=== PATIENT | male | born 2005 | race Hispanic/Latino ===

== ENCOUNTER 2025-05-29 01:58 | Emergency (ER) | payer SELFPAY ==
[2025-05-29] VITALS (9 sets, daily range): BP systolic 113–133; BP diastolic 67–85; PULSE 62–79; RESP 13–20; TEMP 36.5–36.8; O2SAT 98–100
[2025-05-29 02:21] LABS: Hematocrit 44.1 % (42.0-52.0); Hemoglobin 14.9 g/dL (14.0-18.0); Immature Granulocyte Percent A 0.2 % (0-0.5); Lymphocytes Absolute Auto 2.86 K/mm3 (0.9-3.2); Mean Corpuscular HGB Conc 33.8 g/dl (32-36); Mean Corpuscular Hemoglobin 28.0 pg (26-34); Mean Corpuscular Volume 82.7 fl (80-100); Nucleated Red Blood Cells Absolute Auto 0.000 K/mm3 (0.0-0.012); Nucleated Red Blood Cells Perc 0.0 % (0.0-0.2); Platelet Count Result 250 k/mm3 (150-375); Red Blood Count 5.33 M/mm3 (4.6-6.20); White Blood Count 8.8 K/mm3 (4.5-10.0)
[2025-05-29 02:35] LABS: Alanine Aminotransferase 18 U/L (6-50); Albumin Level 4.9 g/dL (3.5-5.1); Alkaline Phosphatase 94 U/L (38-126); Anion Gap 9 mmol/L (4-12); Aspartate Amino Transferase 31 U/L (17-59); Bilirubin,Total 0.4 mg/dL (0.2-1.3); Blood Urea Nitrogen 15 mg/dL (9-20); Calcium 9.6 mg/dL (8.4-10.2); Carbon Dioxide 26 mmol/L (22-30); Chloride 103 mmol/L (98-107); Estimated Glomerular Filt Rate > 60; Glucose 117 mg/dL (65-110); Lipase 47 U/L (23-300); Potassium 4.0 mmol/L (3.4-5.0); Sodium 138 mmol/L (137-145); Total Protein 7.8 g/dL (6.3-8.2)
[2025-05-29 05:13] LABS: Add Urine Microscopic? YES; Appearance Urine Turbid (Clear); Glucose Urine UA Negative (Negative); Leukocyte Esterase Ur Negative LEU/UL (Negative); Nitrate Urine Negative (Negative); Non Pathogenic Casts 0-2; Specific Grav Ur 1.014 (1.001-1.035)
--- NOTE | 2025-05-29 05:41 | ED.ABDPAIN ---
HPI - Abdominal Pain General Chief Complaint: Abdominal Pain Stated Complaint: stomach pain; nausea Time Seen by Provider: 05/29/25 05:31 History of Present Illness HPI narrative: 20-year-old otherwise healthy male with no pertinent past medical history presenting with left upper quadrant burning pain since last night. Previous to this he ate pain did express with his partner and start amoxicillin for recent dental infection. He states he has 10/10 burning left upper quadrant pain associated with some nausea. No traumatic injuries. No recent health concerns otherwise. Has not tried anything for symptom control. Dorsum constipation was able to go the bathroom earlier before being seen in the ED. Denies any urinary complaints. No fever, chills, chest pain, difficulty breathing. Was otherwise in his normal state of health. No abdominal surgical history. Related Data Allergies Allergy/AdvReac Type Severity Reaction Status Date / Time No Known Allergies Allergy Verified 05/29/25 02:00 Review of Systems Review of Systems: As reviewed above in HPI All systems reviewed & are unremarkable except as noted in HPI and below Exam Narrative: GENERAL: Uncomfortable appearing but not any acute distress, awake and answering all questions appropriately HEAD: [Normocephalic, atraumatic.] EYES: [PERRLA and EOMI.] ENT: Nares clear, no rhinorrhea or epistaxis. Mucous membranes moist. NECK: Supple. CHEST: [Clear to auscultation. No respiratory distress.] HEART: [Regular rate and rhythm]. No murmur heard. [Normal peripheral pulses.] ABDOMEN: Soft, nondistended, no rigidity or guarding. No peritonitis. EXTREMITIES: Normal range of motion. [No edema.] SKIN: Warm, dry, no rash. NEURO: [No focal deficits]. Alert and oriented [x3.] PSYCH: [Normal mood and affect.] Course Vital Signs Vital signs: Vital Signs Temperature 36.8 C 05/29/25 02:03 Pulse Rate 76 05/29/25 02:03 Respiratory Rate 18 05/29/25 02:03 Blood Pressure 133/80 05/29/25 02:03 Pulse Oximetry 100 05/29/25 02:03 Oxygen Delivery Room Air 05/29/25 02:03 Temperature 36.8 C 05/29/25 04:57 Pulse Rate 77 05/29/25 04:57 Respiratory Rate 16 05/29/25 04:57 Blood Pressure 131/85 05/29/25 04:57 Pulse Oximetry 100 05/29/25 04:57 Oxygen Delivery Room Air 05/29/25 02:03 [facility] Narrative Medical decision making narrative: 20-year-old otherwise healthy male with no pertinent past medical history presenting with left upper quadrant burning pain since last night. Previous to this he ate pain did express with his partner and start amoxicillin for recent dental infection. He states he has 10/10 burning left upper quadrant pain associated with some nausea. No traumatic injuries. No recent health concerns otherwise. Has not tried anything for symptom control. Dorsum constipation was able to go the bathroom earlier before being seen in the ED. Denies any urinary complaints. No fever, chills, chest pain, difficulty breathing. Was otherwise in his normal state of health. No abdominal surgical history. Patient has a benign physical examination, normal vital signs. Burning quality left upper quadrant pain consistent with gastritis or gastroenteritis possibility of reaction from his amoxicillin that he recently started prior to symptom onset or from possibility of some food intake. Laboratory studies were obtained which were unremarkable. He was given a GI cocktail and Bentyl for symptoms and re-evaluated. Patient felt significantly better after GI cocktail and Bentyl. He then told me that he bought food off a Facebook add and then ate that and thinks it caused his food poisoning. Safe for discharge. Scripts provided. Differential Diagnosis Differential Diagnosis: Burning quality left upper quadrant pain consistent with gastritis or gastroenteritis possibility of reaction from his amoxicillin that he recently started prior to symptom onset or from possibility of some food intake. Lab Data [facility] Lab Attestation statement: I personally reviewed the patient's lab results. 05/29/25 02:15 05/29/25 02:15 Labs: Lab Results 05/29/25 05/29/25 Range/Units 02:15 04:59 WBC 8.8 (4.5-10.0) K/mm3 RBC 5.33 (4.6-6.20) M/mm3 Hgb 14.9 (14.0-18.0) g/dL Hct 44.1 (42.0-52.0) % MCV 82.7 (80-100) fl MCH 28.0 (26-34) pg MCHC 33.8 (32-36) g/dl RDW 12.5 (11.5-14.5) % Plt Count 250 (150-375) k/mm3 MPV 10.4 (7.4-10.4) fl Immature Gran % (Auto) 0.2 (0-0.5) % Neut % (Auto) 59.4 (45.5-73.1) % Lymph % (Auto) 32.5 (18.3-44.2) % [place] % (Auto) 4.8 (2.6-8.5) % Eos % (Auto) 2.2 (0-4.4) % Baso % (Auto) 0.9 (0.2-1.2) % Lymph # (Auto) 2.86 (0.9-3.2) K/mm3 [place] # (Auto) 0.4 (0.1-0.6) K/mm3 Eos # (Auto) 0.2 (0-0.3) K/mm3 Baso # (Auto) 0.1 (0.0-0.1) K/mm3 Abs Immat Gran (auto) 0.02 (0.00-0.031) K/mm3 Absolute Neuts (auto) 5.2 (1.3-6.7) K/mm3 Absolute Nucleated RBC 0.000 (0.0-0.012) K/mm3 Nucleated RBC % 0.0 (0.0-0.2) % Sodium 138 (137-145) mmol/L Potassium 4.0 (3.4-5.0) mmol/L Chloride 103 (98-107) mmol/L Carbon Dioxide 26 (22-30) mmol/L Anion Gap 9 (4-12) mmol/L BUN 15 (9-20) mg/dL Creatinine 1.01 (0.7-1.3) mg/dL Estim Creat Clear Calc Not Reportable Estimated GFR > 60 (59 - ) Glucose 117 H (65-110) mg/dL Calcium 9.6 (8.4-10.2) mg/dL Total Bilirubin 0.4 (0.2-1.3) mg/dL AST 31 (17-59) U/L ALT 18 (6-50) U/L Alkaline Phosphatase 94 (38-126) U/L Total Protein 7.8 (6.3-8.2) g/dL Albumin 4.9 (3.5-5.1) g/dL Lipase 47 (23-300) U/L Urine Color Yellow (Yellow) Urine Appearance Turbid H (Clear) Urine pH 8.5 (5.0-9.0) Ur Specific [place] 1.014 (1.001-1.035) Urine Protein Negative (Negative) mg/dL Urine Glucose (UA) Negative (Negative) mg/dL Urine Ketones Negative (Negative) mg/dL Ur Blood (Man) Negative (Negative) Urine Nitrate Negative (Negative) Urine Bilirubin Negative (Negative) Urine Urobilinogen 0.2 (<2.0) mg/dL Leukocyte Esterase Rfl Negative (Negative) LEYDI/UL Urine RBC 0-2 (0-2) /hpf Urine WBC 0-5 (0-3) /hpf Ur Squamous Epith Cells None seen (Few) /hpf Urine Bacteria None seen /hpf Urine Casts 0-2 Discharge Plan Discharge Clinical Impression: Gastroenteritis Patient Disposition: Home Condition: Stable Instructions: Antibiotic Form, Gastroenteritis (DC), Food Poisoning (ED) Additional Instructions: Refrain from buying mysterious foods online. Here is a prescription for Bentyl and maalox. Return with any emergencies. Patient Language: Wolof Prescriptions: New dicyclomine 20 mg tablet 20 mg PO TID PRN (Reason: abdominal pain) Qty: 20 0RF alum-mag hydroxide-simeth [Maalox Advanced] 200-200-20 mg/5 mL suspension 15 ml PO QID PRN (Reason: indigestion) Qty: 3000 0RF Rx Instructions: administer between meals and at bedtime Follow-up/Referrals: UNKNOWN,DOCTOR [Non-Staff] Time of Disposition: 06:38
[2025-05-29] MEDS: DICYCLOMINE HCL INJ 20 MG/2 ML VIAL IM (05:56)
[2025-05-29] MEDS: BELLADONNA ALK/PHENOB ELIX 10 ML, MAG HYDROX/ALUMINUM HYD/SIMETH 30 ML, LIDOCAINE 2% VI... PO (05:56)
== END 2025-05-29 07:20 | disposition home or self-care (01) ==
PROVIDERS: Emergency Provider Student in an Organized Health Care Education/Training Program
DX: K52.9 Noninfective gastroenteritis and colitis, unspecified (principal)
CPT/HCPCS: 36415; 80053; 81001; 83690; 85025; 96372; 99283; A9270; J0500